=== PATIENT | female | born 1975 | race Two or more races ===

== ENCOUNTER 2022-11-21 13:12 | Emergency (ER) | payer MEDICAID, SELFPAY ==
--- NOTE | ~2022-11-21 | XR_ITS ---
EXAMINATION: XR TIBIA AND FIBULA, LEFT CLINICAL INFORMATION: Left leg ecchymosis and swelling after fall. COMPARISON: None available. TECHNIQUE: AP and lateral views of the left tibia and fibula were obtained. FINDINGS: The bones and soft tissues are normal. No fracture. No osseous lesions. XR/XR tibia fibula LT 2V IMPRESSION: Unremarkable left tibia and fibula.
--- NOTE | ~2022-11-21 | US_ITS ---
EXAMINATION: US VENOUS ULTRASOUND WITH DOPPLER LOWER EXTREMITY, LEFT CLINICAL INFORMATION: Bruising trauma COMPARISON: None available. TECHNIQUE: Ultrasound of the deep veins is performed from the hip to the calf with compression sonography and color and pulse Doppler assessment. Spectral analysis with color-flow imaging is performed. FINDINGS: There is normal venous compression and respiratory variation and augmented flow. The visualized common femoral vein, superficial femoral vein, profunda femoral vein, popliteal vein, and the trifurcation region shows no evidence of deep venous thrombosis. There is no significant popliteal fossa cyst. If the patient's symptoms persist, followup ultrasound in 5 days 7 days might be of value to exclude proximal propagation from a non-visualized calf vein. US/US venous duplex LE LT IMPRESSION: No DVT demonstrated in the left lower extremity.
[2022-11-21 13:19] VITALS: BP 177/102; PULSE 83; RESP 18; TEMP 36.8; O2SAT 96; BMI 26.1
--- NOTE | 2022-11-21 13:29 | ED_ITS ---
HPI - General Adult General Chief complaint: General Medical Stated complaint: fell down stairs leg pain Time Seen by Provider: 11/21/22 14:31 Source: patient Mode of arrival: ambulatory Limitations: no limitations History of Present Illness HPI narrative: 47 yo female here with complaints of left calf pain after a trip and fall down approximately 14 steps 1 week ago. Patient reports she was carrying laundry when she missed a step. No head strike or LOC. Since then swelling/pain/bruising to left calf. No weakness/numbness/tingling of the extremity. NO history of DVT but patient reports she has had vein stripping procedure. Related Data Allergies Allergy/AdvReac Type Severity Reaction Status Date / Time No Known Allergies Allergy Verified 11/21/22 13:19 Review of Systems Review of Systems: Yes all other systems are reviewed and are negative Constitutional: Constitutional: Reports no additional constitutional complaints, Denies body ache(s), Denies chills, Denies fever(s), Denies headache(s) and Denies weakness Eyes: Eyes: Reports no additional eye complaints and Denies change in vision ENT: Reports system reviewed and no additional complaints, except as documented, Denies dizziness, Denies headache(s), Denies nasal congestion, Denies nasal discharge and Denies neck pain Cardiovascular: Cardiovascular: Reports no additional cardiovascular complaints, Denies chest pain, Denies leg edema and Denies dyspnea Respiratory: Respiratory: Reports no additional respiratory complaints, Denies cough and Denies dyspnea Gastrointestinal: Gastrointestinal: Reports no additional gastrointestinal complaints, Denies abdominal pain, Denies diarrhea, Denies nausea and Denies vomiting Genitourinary: Genitourinary: Reports no additional female genitourinary complaints and Denies urinary incontinence Musculoskeletal: Musculoskeletal: Reports no additional musculoskeletal complaints, Denies back pain, Denies arthralgias, Denies joint swelling, Denies neck pain, Denies numbness and Denies tingling Comments: +muscle pain Integumentary/Breasts: Skin/Breast: Reports system reviewed and no additional complaints, except as docu and Denies rash Neurologic: Reports system reviewed and no additional complaints, except as documented, Denies Abnormal speech present, Denies dizziness, Denies headache(s), Denies numbness, Denies tingling and Denies weakness PMFSH Past Medical History Attestation statement: The following information was validated with the patient. Source: old records reviewed and nursing notes reviewed Social History Social History Alcohol intake: never Smoked in Last 30 Days: No Use of substances other than those prescribed or required for medical reasons: No Advance Directives: No Advance Directives Information Provided: No Patient : No Physical Exam ED Vital Signs: Vital Signs - 24 hr 11/21/22 13:19 11/21/22 16:00 Temperature 98.2 F 98.9 F Pulse Rate 83 72 Respiratory Rate 18 16 Blood Pressure 177/102 H 176/106 H Pulse Oximetry 96 100 Oxygen Delivery Method Room Air Room Air BMI result Body Mass Index 26.1 Const General: cooperative, healthy appearing, comfortable and no acute distress Orientation/consciousness: patient oriented x3 Limitations: no limitations HENMT Head: Yes normal to inspection Ears: hearing grossly normal bilaterally General nose exam: Normal external nose present Face and sinus: Yes normal facial exam Mouth: Normal oral and palatal mucosa present Throat: Yes posterior oropharynx normal Eyes General: appearance normal, both eyes and all related structures Pupils: Equal, round and reactive pupils present Neck Neck: Yes normal visual inspection Chest Chest palpation & inspection: normal inspection of the chest Resp Effort & Inspection: normal respiratory effort Auscultation: clear to auscultation bilaterally Cardio Rate: regular rate Rhythm: regular rhythm Peripheral pulses: Peripheral pulses 2+ throughout GI Inspection: Yes normal to inspection Palpation (GI): Soft to palpation and nontender Auscultation: normal bowel sounds Back/Spine/Pelvis Thoracic/Lumbar Spine: thoracic and lumbar spine normal to inspection Skin General skin exam: no rashes or lesions noted Neuro General: patient oriented x3, no focal motor deficits and normal sensation to monofilament Cranial nerves: Yes Equal, round and reactive pupils present Cognition (Neuro): normal cognition Speech: No Abnormal speech present Gait exam (Neuro): Normal gait present Motor exam (neuro): 5/5 motor strength present throughout Extrem Other: +ecchymosis to left calf, left medial lower leg which extends to the ankle. +tenderness to soft tissue area. NO bony tenderness over the ankle/foot with full passive/active rom. 2+ DP/PT pulses. Normal sensation over the foot/ankle. No posterior ankle pain. Negative sebastian sign. No bony tenderness over the left knee with full passive/active ROM General: Yes normal to inspection Course Course Course Narrative: RME: 47 yold female presents to the ED for left leg swelling and bruising after falling down stairs last week. positive for left leg ecchymosis, swelling, and pitting edmea. motor/vascular/nuero exam is intact. xrays and US ordered. Reevaluation(s) Reevaluation #1: x-ray show no fracture. Ultrasound is negative for DVT. Likely contusion. Patient was placed in Michel wrap. Offered crutches but declined. Recommend supportive care at home. Reviewed worrisome signs and symptoms of when to return to the emergency room. Comfortable plan for discharge home. -asymptomatic htn on discharge with history of same Medical Decision Making Medical Decision Making MDM Narrative: 47 yo female here with complaints of left calf pain after a trip and fall down approximately 14 steps 1 week ago. Patient reports she was carrying laundry when she missed a step. No head strike or LOC. Since then swelling/pain/bruising to left calf. No weakness/numbness/tingling of the extremity. NO history of DVT but patient reports she has had vein stripping procedure. +ecchymosis to left calf, left medial lower leg which extends to the ankle. +tenderness to soft tissue area. NO bony tenderness over the ankle/foot with full passive/active rom. 2+ DP/PT pulses. Normal sensation over the foot/ankle. No posterior ankle pain. Negative sebastian sign. No bony tenderness over the left knee with full passive/active ROM Will review x-rays, US ordered from triage Differential Diagnosis Differential Diagnoses: The differential diagnosis associated with the presentation includes Low concern for DVT, achilles tendon rupture, vascular injury Consider gastro tear, strain, sprain, fracture Admission/Observation Consideration of admission/observation: Escalation of care including admission/observation considered low concern for complex fracture, dislocation, vascular injury, Achilles tendon rupture require emergent orthopedic consultation and/or advanced imaging Independent Interpretation I performed an independent interpretation of an: Plain X-Ray and Ultrasound Interpretation: I independently reviewed the x-ray and the ultrasound and agree with radiology report Radiology Impression Discussion of test interpretation with radiology: I have reviewed the radiologist's reading. Radiologist Impression: [address] [address] Ultrasound Report Signed Patient: Pilar Farris MR#: [id number] : 1975 Acct:[id number] Age/Sex: 47 / F ADM Date: 11/21/22 Loc: .ED Attending Dr: Ordering Physician: Heladio Anaya Date of Service: 11/21/22 Procedure(s): US venous duplex LE LT Accession Number(s): [id number] cc: Heladio Anaya; Physician,None ~ EXAMINATION: US VENOUS ULTRASOUND WITH DOPPLER LOWER EXTREMITY, LEFT CLINICAL INFORMATION: Bruising trauma COMPARISON: None available. TECHNIQUE: Ultrasound of the deep veins is performed from the hip to the calf with compression sonography and color and pulse Doppler assessment. Spectral analysis with color-flow imaging is performed. FINDINGS: There is normal venous compression and respiratory variation and augmented flow. The visualized common femoral vein, superficial femoral vein, profunda femoral vein, popliteal vein, and the trifurcation region shows no evidence of deep venous thrombosis. There is no significant popliteal fossa cyst. If the patient's symptoms persist, followup ultrasound in 5 days 7 days might be of value to exclude proximal propagation from a non-visualized calf vein. US/US venous duplex LE LT IMPRESSION: No DVT demonstrated in the left lower extremity. [place] [id number] XRay Report Signed Patient: Pilar Farris MR#: [id number] : 1975 Acct:[id number] Age/Sex: 47 / F ADM Date: 11/21/22 Loc: .ED Attending Dr: Ordering Physician: Heladio Anaya Date of Service: 11/21/22 Procedure(s): XR tibia fibula LT 2V Accession Number(s): [id number] cc: Heladio Anaya; Physician,None ~ EXAMINATION: XR TIBIA AND FIBULA, LEFT CLINICAL INFORMATION: Left leg ecchymosis and swelling after fall. COMPARISON: None available. TECHNIQUE: AP and lateral views of the left tibia and fibula were obtained. FINDINGS: The bones and soft tissues are normal. No fracture. No osseous lesions. XR/XR tibia fibula LT 2V IMPRESSION: Unremarkable left tibia and fibula. Tests considered The following testing was considered but not selected: low concern for complex fracture, dislocation, vascular injury, Achilles tendon rupture requiring advanced imaging Prescription Management I considered prescription management with: Pain Medication Discharge Plan Discharge Clinical Impression: Contusion of leg, left Patient Disposition: Home, Self-Care Instructions: Contusion in Adults (ED) Additional Instructions: Rest, ice, elevation Use the michel wrap for comfort Motrin or Tylenol for pain as needed See your PCP for any continued symptoms Referrals: Physician,None [Primary Care Provider] - 1 week Interventions: ED Discharge Assessment Last Done: 11/21/22 16:32
[2022-11-21 16:00] VITALS: BP 176/106; PULSE 72; RESP 16; TEMP 37.2; O2SAT 100
--- NOTE | 2022-11-21 16:12 | PC.NURSE ---
BP ELEVATES,PT REPORTS HISTORY. PT TO FOLLOW UP WITH PCP.
== END 2022-11-21 16:15 | disposition home or self-care (01) ==
PROVIDERS: Emergency Provider Emergency Medicine
DX: S80.12XA Contusion of left lower leg, initial encounter (principal); R60.0 Localized edema; W10.9XXA Fall (on) (from) unspecified stairs and steps, initial encounter; Y93.9 Activity, unspecified; Y92.9 Unspecified place or not applicable; Y99.9 Unspecified external cause status
CPT/HCPCS: 73590; 93971; 99284